=== PATIENT | female | born 1975 | race African-American/Black ===

== ENCOUNTER 2017-12-21 15:46 | Emergency (ER) | payer OTHER ==
[~2017-12-21] VITALS: Ht 162.6 cm; Wt 59.0 kg
[~2017-12-21 15:46] MED LIST: AMOXICILLIN500 MG ORAL; BACITRACIN15 GM TOPIC; BACTRIM-DS1 EA ORAL; CYCLOBENZAPRINE10 MG ORAL; FERROUS SULFAT325 MG ORAL; HYDROCODON-ACE1 EA15 ORAL; IBUPROFEN600 MG ORAL; KEFLEX500 MG ORAL; KEPPRA500 MG ORAL; NORCO 5-325 TA1 EAC1 ORAL; NORCO 5-325 TA1 EACH ORAL; PERIDEX 0.12% O16 OZ MT; PROAIR HFA8.5 GM INH; TOPIRAMATE25 MG PO; VENLAFAXINE HCL25 MG PO; VICODIN 5-5001 EACH PO; ZOFRAN4 MG ORAL; [UNRECOGNIZED DRUG - REMARK]
[2017-12-21 15:52] VITALS: BP 134/82
--- NOTE | 2017-12-21 16:31 | Emergency Room Report ---
History of Present Illness General Chief Complaint: Syncope Source: Patient Present Illness HPI Patient is a 42-year-old female brought in by EMS for reported near syncopal episode. Per EMS patient had been at a physician's office. Patient called 911 after reportedly passing out. Patient prior history of partial seizures. Patient states that she had been having increased difficulty with the right shoulder pain as well as neck pain after fall. The patient prior history of cervical fusion. The patient was seeing a pain management physician at the time of episode. Allergies: Coded Allergies: Cat Dander (Unverified Allergy, Unknown, 09/06/15) Patient History Past Medical History: see triage record Reviewed Nursing Documentation: PMH: Agreed; PSxH: Agreed Nursing Documentation-PMH Past Medical History: No History, Except For Hx Asthma: Yes Hx Cerebrovascular Accident: Yes Hx Seizures: Yes Review of Systems All Other Systems: negative except mentioned in HPI Physical Exam Vital Signs Date Time Temp Pulse Resp B/P (MAP) Pulse Ox O2 Delivery O2 Flow Rate FiO2 12/21/17 15:37 98.5 78 20 134/82 99 Room Air 98.4 General Appearance: well appearing, no apparent distress, alert, GCS 15 Head: normocephalic, atraumatic ENT: hearing grossly normal, normal voice Neck: supple, limited range of motion Respiratory: no respiratory distress, speaking full sentences Cardiovascular #1: normal peripheral pulses, no edema, no gallop Gastrointestinal: normal inspection Musculoskeletal: normal inspection, back normal, digits/nails normal, no calf tenderness, other - no soft tissue swelling noted to forehead or to shoulder Neurologic: alert, oriented x3, responsive, game designer III-XII nml as tested, motor strength/tone normal, normal gait Psychiatric: normal inspection, judgement/insight normal, no suicidal/ homicidal ideation, other Skin: no rash Medical Decision Making Diagnostic Impression: Primary Impression: Chronic pain ER Course Patient presented for possible syncope. diagnosis included but not limited to syncope versus seizure. Potential causes for syncope included arrhythmia, dehydration, acute coronary syndrome, severe anemia, pulmonary embolus. The EKG interpreted by me showed normal sinus rhythm with a rate of [address] or T wave changes. CT the head read by radiology showed no evidence of acute intracranial hemorrhage or CVA. The cervical spine imaging 4 views interpreted by me showed postsurgical changes with no evident acute fracture there is noted to be some reversal of cervical curvature in the upper cervical spine above the level of the fusion. The prevertebral soft tissue is normal. I contacted the physician's office and they stated that the patient had no loss of consciousness or skin color changes during episode and assisted herself to the floor. Patient refused laboratory testing. The patient was given a sling for comfort although I do not see any definite injury. The patient remains awake and alert throughout emergency department course. The patient is advised to follow up with her primary care doctor in 1-2 days. Patient is advised to return if any worsening condition or if any changes in status that are concerning. This report is dictated with [employer] couture alterations dressmaker software which may occasionally lead to discrepancies related to use of this software. Last Vital Signs Date Time Temp Pulse Resp B/P (MAP) Pulse Ox O2 Delivery O2 Flow Rate FiO2 12/21/17 15:52 98.4 20 134/82 99 Room Air 98.4 12/21/17 15:37 78 Status: improved Disposition: HOME, SELF-CARE Condition: Stable Scripts Ibuprofen* (MOTRIN*) 600 Mg Tablet 600 MG ORAL Q8H PRN for For Pain, #30 TAB 0 Refills Prov: Lloyd Zavala MD 12/21/17 Lloyd Zavala MD December 21, 2017 16:31
[2017-12-21] MEDS ORDERED: IBUPROFEN600 MG ORAL (17:20)
[2017-12-21 17:43] VITALS: BP 134/82
--- NOTE | 2017-12-22 09:48 | Diagnostic Imaging Report ---
Indication: Altered mental status Technique: Contiguous 5 mm thick transaxial imaging of the head obtained in a Siemens Sensation [address] scanner. Soft tissue and bone windows generated. Automatic Exposure Control was utilized. Total Dose length Product (DLP): 1365.[address] Dose Index Volume (CTDIvol): 70.38 mGy Comparison: none Findings: The size and configuration of the cortical sulci, basal cisterns, and ventricles are within normal limits for age. There is no mass effect, midline shift, or edema identified. There is no evidence of acute hemorrhage or abnormal intra-axial or extra-axial fluid collections. The bones and soft tissues are unremarkable. Impression: No mass effect, edema or acute bleed. The CT scanner at [facility] is accredited by the [employer] and the scans are performed using dose optimization techniques as appropriate to a performed exam including Automatic Exposure control.
--- NOTE | 2017-12-22 10:51 | Diagnostic Imaging Report ---
Indication: Neck Pain Findings: 3 views of the cervical spine were obtained. Anterior cervical fusion at C5-6 demonstrated with a compression plate and intervening disc prosthesis. C6-7 disc is narrow with moderate endplate spur formation. Spurring also noted with abnormal disc space at C4-5. There is slight reversal of cervical lordosis about the mid and upper part of the cervical spine. There is no fracture identified or other malalignment concerning for acute injury. The open-mouth view shows good alignment of C1-2 and an intact dens. IMPRESSION: No acute injury. Cervical fusion as described above. Degenerative changes above and below the area of fusion. Reversal of cervical lordosis which may be due to muscle spasm.
== END 2017-12-21 17:46 | disposition home or self-care (01) ==
LOC: EDBD 15:46 → EMR 16:55
DX: R55 Syncope and collapse (principal); R41.82 Altered mental status, unspecified; J45.909 Unspecified asthma, uncomplicated; Z86.73 Personal history of transient ischemic attack (TIA), and cerebral infarction without residual deficits; Z98.1 Arthrodesis status; M54.2 Cervicalgia
CPT/HCPCS: 70450; 72050; 99284

== ENCOUNTER 2018-11-17 09:40 | Emergency (ER) | payer OTHER ==
[~2018-11-17] VITALS: Ht 160 cm; Wt 54.4 kg
--- NOTE | 2018-11-17 09:55 | NUR ---
ED Nurse Note: PT WALKED IN TO ER TODAY FROM HOME. AOX4. PT C/O LOWER RIGHT MOLAR TOOTHACHE X 2 DAYS AGO, PAIN 9/10. PT STATES SHE IS WAITING TO MAKE AN APPT WITH HER DENTIST BUT HAS NO APPT YET.
[2018-11-17 09:57] VITALS: BP 110/82
--- NOTE | 2018-11-17 10:26 | Emergency Room Report ---
History of Present Illness General Chief Complaint: Toothache Source: Patient, Medical Record Present Illness HPI Patient presents with several days of R upper molar pain. Feels this radiating to side of face. Constant and severe. Rated 9/10, aching, constant and worse with chewing. No swelling of face. No fevers or chills. Has been rinsing with salt water - not help. Not . Allergies: Coded Allergies: Cat Dander (Unverified Allergy, Unknown, 09/06/15) Patient History Past Medical History: see triage record Social History: Denies: smoking - former Social History Narrative from home Last Menstrual Period: 10/24/2018 Now: No : 0 Para: 0 Reviewed Nursing Documentation: PMH: Agreed; PSxH: Agreed Nursing Documentation-PMH Past Medical History: No Stated History Hx Asthma: Yes Hx Cerebrovascular Accident: Yes Hx Seizures: Yes Review of Systems Constitutional: Reports: see HPI ENT: Reports: see HPI Cardiovascular: Denies: chest pain Gastrointestinal: Denies: nausea, vomiting Genitourinary: Reports: see HPI Musculoskeletal: Denies: joint swelling Skin: Denies: rash Neurological: Reports: see HPI Physical Exam Vital Signs Date Time Temp Pulse Resp B/P (MAP) Pulse Ox O2 Delivery O2 Flow Rate FiO2 11/17/18 09:47 99.1 78 18 104/76 100 Room Air Sp02 EP Interpretation: reviewed, normal General Appearance: well appearing, no apparent distress Head: normocephalic, atraumatic Eyes: bilateral eye normal inspection, bilateral eye PERRL ENT: hearing grossly normal, normal voice, other - tender R upper molars, no significant gum swelling Neck: full range of motion, supple Respiratory: normal inspection, no respiratory distress, speaking full sentences Cardiovascular #1: regular rate, rhythm Cardiovascular #2: 2+ radial (R) Gastrointestinal: normal inspection Musculoskeletal: back normal, digits/nails normal, gait/station normal, no calf tenderness Neurologic: alert, oriented x3, grossly normal Psychiatric: mood/affect normal Skin: no rash Medical Decision Making Diagnostic Impression: Primary Impression: Dental abscess ER Course Patient presents with upper molar pain. DDx; dental abscess, dental pain amongst others. Exam consistent with dental abscess. Antibiotics and analgesics indicated. Discussed treatment plan with patient. Patient stable for outpatient observation and treatment. Last Vital Signs Date Time Temp Pulse Resp B/P (MAP) Pulse Ox O2 Delivery O2 Flow Rate FiO2 11/17/18 10:39 98.8 76 17 112/80 100 Room Air Status: improved Disposition: HOME, SELF-CARE Condition: Improved Scripts Lidocaine HCl 2% Viscous (Lidocaine HCl 2% Viscous) 100 Ml Solution 1 APPLIC ORAL QID, #30 ML Prov: Srinivas uFnez MD 11/17/18 Tramadol Hcl* (ULTRAM*) 50 Mg Tablet 50 MG ORAL Q6H PRN for For Pain, #6 TAB 0 Refills Prov: Srinivas Funez MD 11/17/18 Amoxicillin* (AMOXIL*) 500 Mg Capsule 500 MG ORAL THREE TIMES A DAY, #21 CAP Prov: Srinivas Funez MD 11/17/18 Ibuprofen* (MOTRIN*) 600 Mg Tablet 600 MG ORAL Q6H PRN for For Pain, #16 TAB Prov: Srinivas Funez MD 11/17/18 Srinivas Funez MD Nov 17, 2018 10:26
[2018-11-17] MEDS ORDERED: LIDOCAINE VISC100 ML ORAL (10:29)
[2018-11-17] MEDS ORDERED: AMOXICILLIN500 MG ORAL (10:29)
[2018-11-17] MEDS ORDERED: TRAMADOL HCL50 MG ORAL (10:29)
[2018-11-17] MEDS ORDERED: IBUPROFEN600 MG ORAL (10:29)
[2018-11-17 10:39] VITALS: BP 112/80
--- NOTE | 2018-11-17 10:39 | NUR ---
ED Nurse Note: PT SITTING PEACEFULLY IN BED IN NAD. AOX4. PRESCRIPTIONS AND DISCHARGE PAPERWORK EXPLAINED TO PT. PT VERBALIZES UNDERSTANDING AND ALL QUESTIONS ANSWERED. PRESCRIPTIONS AND DISCHARGE PAPERWORK GIVEN TO PT AND ID WRISTBAND REMOVED. PT WALKED OUT OF ER WITH STEADY GAIT AND ALL BELONGINGS.
== END 2018-11-17 11:00 | disposition home or self-care (01) ==
LOC: EMR 10:48
DX: K04.7 Periapical abscess without sinus (principal); J45.909 Unspecified asthma, uncomplicated; Z86.73 Personal history of transient ischemic attack (TIA), and cerebral infarction without residual deficits
CPT/HCPCS: 99283

== ENCOUNTER 2019-02-25 11:43 | Emergency (ER) | payer OTHER ==
[~2019-02-25] VITALS: Ht 160 cm; Wt 54.4 kg
[~2019-02-25 11:43] MED LIST changes: +LIDOCAINE VISC100 ML ORAL; +TRAMADOL HCL50 MG ORAL
--- NOTE | 2019-02-25 11:56 | NUR ---
ED Nurse Note: PT CAME IN DUE TO LEFT LEG PAIN AFTER A CEILING FELL OFF AND HIT HER LEG. NO BRUISING OR OPEN WOUNDS. PT IS AAO X4, AMBULATES WITH STEADY GAIT. DENIES LOC.
[2019-02-25] MEDS ORDERED: Acetaminophen 500mg (ES) tab ORAL ONE (12:30)
--- NOTE | 2019-02-25 12:35 | NUR ---
ED Nurse Note: pt refused to give urine sample abnd stated she is not .
--- NOTE | 2019-02-25 12:38 | NUR ---
ED Nurse Note: pt was medicated and tolerated well.
[2019-02-25] MEDS ORDERED: NAPROXEN250 MG ORAL (13:07)
[2019-02-25] MEDS ORDERED: ROBAXIN-750750 MG PO (13:07)
--- NOTE | 2019-02-25 13:07 | Emergency Room Report ---
History of Present Illness General Chief Complaint: Lower Extremity Injury Source: Patient Present Illness HPI 44-year-old female presents with left shoulder pain, patient [place] [employer] [place], she states there is falling debris, she states some debris hit her, no large metal object hit her she states mainly plaster from the ceiling, no LOC, no damage to the head she also endorses some left hip pain. States the pain is aggravated with movement alleviated with rest , no radiation of the pain Allergies: Coded Allergies: Cat Dander (Unverified Allergy, Unknown, 09/06/15) Patient History Social History: Reports: smoking Now: No Reviewed Nursing Documentation: PMH: Agreed; PSxH: Agreed Nursing Documentation-PMH Hx Asthma: Yes Hx Cerebrovascular Accident: Yes Hx Seizures: Yes Review of Systems All Other Systems: negative except mentioned in HPI Physical Exam Vital Signs Date Time Temp Pulse Resp B/P (MAP) Pulse Ox O2 Delivery O2 Flow Rate FiO2 02/25/19 11:45 98.4 77 19 113/74 (87) 98 Room Air Sp02 EP Interpretation: reviewed, normal General Appearance: well appearing, no apparent distress, alert Head: normocephalic, atraumatic Eyes: bilateral eye PERRL, bilateral eye EOMI ENT: uvula midline, moist mucus membranes Neck: supple, thyroid normal, supple/symm/no masses Respiratory: lungs clear, no respiratory distress, no retraction, no accessory muscle use Cardiovascular #1: normal peripheral pulses, regular rate, rhythm, no edema, no gallop, no murmur Gastrointestinal: non tender, soft, no guarding, no rebound Musculoskeletal: normal inspection, other - no obvious injury to the left shoulder, no ecchymosis, no obvious injury to the left hip, patient was able to ambulate without issues, slight tenderness to palp patient on the muscles, Neurologic: alert, oriented x3 Psychiatric: mood/affect normal Skin: no rash, warm/dry Medical Decision Making Diagnostic Impression: Primary Impression: Contusion of muscle ER Course Patient with no midline tenderness, no step-offs, unremarkable physical exam, patient most likely with soft tissue injury, no ecchymosis, no deformity. Suspect muscle contusion, will disposition patient home with return precautions , patient states she is not does not want to give a urine sample for a urine aware of risks and benefits Will provide patient with a prescription, Last Vital Signs Date Time Temp Pulse Resp B/P (MAP) Pulse Ox O2 Delivery O2 Flow Rate FiO2 02/25/19 11:45 98.4 77 19 113/74 (87) 98 Room Air Disposition: HOME, SELF-CARE Scripts Naproxen* (NAPROSYN*) 250 Mg Tablet 250 MG ORAL BID PRN for For Pain, #20 TAB 0 Refills Prov: Van Patel M.D. 02/25/19 Methocarbamol* (ROBAXIN-750*) 750 Mg Tablet 750 MG PO QID, #28 TAB 0 Refills Prov: Van Patel M.D. 02/25/19 Referrals: NON PHYSICIAN (PCP) Patient Instructions: Contusion, [id number] Additional Instructions: The patient was provided with discharge instructions, notified to follow-up with a primary care doctor and or specialist in the next 24-48 hours, and to return to the ED if they have worsening of their symptoms. Please note that this report is being documented using [employer] technology. This can lead to erroneous entry secondary to incorrect interpretation by the dictating instrument. Van Patel M.D. Feb 25, 2019 13:07
[2019-02-25 13:15] VITALS: BP 113/74
--- NOTE | 2019-02-25 13:15 | NUR ---
ER DISCHARGE NOTE: Patient is cleared to be discharged per ERMD, pt is aox4, on room air, with stable vital signs. pt was given dc and prescription instructions, pt was able to verbalize understanding, pt id band removed without complications. pt is able to ambulate with steady gait. pt took all belongings.
== END 2019-02-25 13:15 | disposition home or self-care (01) ==
LOC: EMR 12:40
DX: S40.012A Contusion of left shoulder, initial encounter (principal); S70.02XA Contusion of left hip, initial encounter; J45.909 Unspecified asthma, uncomplicated; G40.909 Epilepsy, unspecified, not intractable, without status epilepticus; F17.200 Nicotine dependence, unspecified, uncomplicated; W22.8XXA Striking against or struck by other objects, initial encounter; Y93.89 Activity, other specified; Y92.59 Other trade areas as the place of occurrence of the external cause; Z91.09 Other allergy status, other than to drugs and biological substances; Z86.73 Personal history of transient ischemic attack (TIA), and cerebral infarction without residual deficits
CPT/HCPCS: 99282

== ENCOUNTER 2019-03-05 22:23 | Emergency (ER) | payer OTHER ==
[~2019-03-05] VITALS: Ht 160 cm; Wt 55.8 kg
[~2019-03-05 22:23] MED LIST changes: +NAPROXEN250 MG ORAL; +ROBAXIN-750750 MG PO
[2019-03-05 22:26] VITALS: BP 110/69
--- NOTE | 2019-03-05 22:37 | NUR ---
ED Nurse Note: Patient presents with complaints of right toe injury with possible ankle involvement. Ankle was previously reconstructed and patient is having pain there as well.
--- NOTE | 2019-03-05 22:45 | NUR ---
ED Nurse Note: JIMBO currently at bedside.
--- NOTE | 2019-03-05 22:59 | Emergency Room Report ---
History of Present Illness General Chief Complaint: Lower Extremity Injury Source: Patient Present Illness HPI 44-year-old female history of reconstructive surgery of the right ankle presents with right toe pain that started after she tripped on a manhole, her right great toe got stuck, she endorses pain with movement, alleviated with rest , pain is described as sharp, no fevers chills chest pain shortness of breath, no abdominal pain. Patient presents for evaluation Allergies: Coded Allergies: Cat Dander (Unverified Allergy, Unknown, 09/06/15) Patient History Past Medical History: see triage record Social History: Reports: smoking Last Menstrual Period: 02/25/19 Now: No Reviewed Nursing Documentation: PMH: Agreed; PSxH: Agreed Nursing Documentation-PMH Past Medical History: No History, Except For Hx Asthma: Yes Hx Cerebrovascular Accident: Yes Hx Seizures: Yes Review of Systems All Other Systems: negative except mentioned in HPI Physical Exam Vital Signs Date Time Temp Pulse Resp B/P (MAP) Pulse Ox O2 Delivery O2 Flow Rate FiO2 03/05/19 22:26 98.6 70 14 110/69 (83) 96 Room Air Sp02 EP Interpretation: reviewed, normal General Appearance: well appearing, no apparent distress, alert Head: normocephalic, atraumatic Eyes: bilateral eye PERRL, bilateral eye EOMI ENT: uvula midline, moist mucus membranes Neck: supple, thyroid normal, supple/symm/no masses Respiratory: lungs clear, no respiratory distress, no retraction, no accessory muscle use Cardiovascular #1: normal peripheral pulses, regular rate, rhythm, no edema, no gallop, no murmur Gastrointestinal: non tender, soft, no guarding, no rebound Musculoskeletal: other - Right lower external knee: 2+ PT, DP, fires EHL, 5 out of 5 plantar dorsiflexion of the ankle, tenderness to palpation over the right great toe, there is a soft tissue defect with flap no bone exposure, at the tip of the right great toe, slight tenderness to palpation of the right ankle lateral malleolus Neurologic: alert, oriented x3 Psychiatric: mood/affect normal Skin: no rash, warm/dry Medical Decision Making Diagnostic Impression: Primary Impression: Right foot sprain ER Course 44-year-old female presents with right foot pain, after tripping on a manhole that was taking out, her right toe was cleaned, irrigated, x-ray showed no acute fracture, there is a displaced screw, we will Jayy wrap the right ankle, however follow-up with orthopedics return precautions discussed TDAP given, wound cleaned, jayy wrap. and crutches, non weight bearing until cleared by ortho CT/MRI/US Diagnostic Results CT/MRI/US Diagnostic Results : Impression FILM RIGHT FOOT: No acute fracture or subluxation. The fourth screw from the top of the fibular fixation hardware is displaced and situated within the medullary cavity. Remaining hardware is intact. Radiologist: Omaira Zelaya MD Study ready at 23:43 and initial results transmitted at 00:06 Last Vital Signs Date Time Temp Pulse Resp B/P (MAP) Pulse Ox O2 Delivery O2 Flow Rate FiO2 03/05/19 22:26 98.6 70 14 110/69 (83) 96 Room Air Disposition: HOME, SELF-CARE Condition: Stable Referrals: [facility] Patient Instructions: Foot Sprain Additional Instructions: The patient was provided with discharge instructions, notified to follow-up with a primary care doctor and or specialist in the next 24-48 hours, and to return to the ED if they have worsening of their symptoms. Please note that this report is being documented using [employer] technology. This can lead to erroneous entry secondary to incorrect interpretation by the dictating instrument. Please follow-up with your current orthopaedic doctor for your right foot in 24- 48 hours, Dr. Garibay "The fourth screw from the top of the fibular fixation hardware is displaced and situated within the medullary cavity. Remaining hardware is intact." Van Patel MD Mar 05, 2019 22:59
[2019-03-05] MEDS ORDERED: Tetanus/Diptheria/Pertussis IM ONE (23:00)
--- NOTE | 2019-03-05 23:04 | NUR ---
ED Nurse Note: Patient tolerated injection well, injection given includes Tdap. Patient also tolerated toe rinse well. Patient awaiting radiology for xray of R foot.
--- NOTE | 2019-03-06 00:07 | Diagnostic Imaging Report ---
Indication: Foot Pain Comparison: None Findings: 3 views of the right foot were obtained. No acute fractures, malalignment, erosions or periostitis are identified. Impression: No acute findings.
--- NOTE | 2019-03-06 00:08 | Diagnostic Imaging Report ---
Indication: ankle pain/trauma Comparison: None Findings: 3 views of the right ankle obtained. No acute fracture, malalignment, periostitis, or osteochondral defects are identified. Bimalleolar hardware noted. Soft tissues are unremarkable.. Impression: No acute findings
== END 2019-03-06 00:23 | disposition home or self-care (01) ==
LOC: EMR 23:56
DX: S93.601A Unspecified sprain of right foot, initial encounter (principal); W17.1XXA Fall into storm drain or manhole, initial encounter; Y92.9 Unspecified place or not applicable; F17.200 Nicotine dependence, unspecified, uncomplicated; Z86.73 Personal history of transient ischemic attack (TIA), and cerebral infarction without residual deficits; G40.909 Epilepsy, unspecified, not intractable, without status epilepticus; Z23 Encounter for immunization
CPT/HCPCS: 90471; 90715; 99284

== ENCOUNTER 2019-05-02 06:28 | Emergency (ER) | payer OTHER ==
[~2019-05-02] VITALS: Ht 160 cm; Wt 54.4 kg
--- NOTE | 2019-05-02 06:40 | NUR ---
ED Nurse Note: Walk-in patient presents with complaints of flu-like symptoms x 3 days. Patient reports history of asthma, bronchitis and seizures. Patient is awake alert and oriented, lung sounds rhonchi and wheezing bilaterally. Patient resting comfortably with visitor in waiting room. Will continue to monitor and service any pending orders.
--- NOTE | 2019-05-02 07:00 | Emergency Room Report ---
History of Present Illness General Chief Complaint: Flu Like Symptoms Source: Patient Present Illness HPI This patient states that she has had a week of a "cold." She states that over the past couple days her symptoms have significantly worsened. She states that she has a thick green brown-colored sputum with streaky blood in it. She states she has had a bad cough. She states she has been fatigued and has had some shortness of breath. She does have a history of tobacco use. She states she quit smoking about 3-1/2 weeks ago. She denies fever or chills. She denies nausea or vomiting. She denies sore throat. She denies headache or neck pain. She denies chest pain or abdominal pain. She states that she has a history of asthma but she is out of her inhaler. She has no other complaints. Allergies: Coded Allergies: Cat Dander (Unverified Allergy, Unknown, 09/06/15) Patient History Past Medical History: see triage record, asthma, other - anemia, eczema Social History: Denies: smoking - Quit 3.5 weeks ago, alcohol use, drug use Last Menstrual Period: 04/2017 Now: No Reviewed Nursing Documentation: PMH: Agreed; PSxH: Agreed Nursing Documentation-PMH Hx Asthma: Yes Hx Cerebrovascular Accident: Yes Hx Seizures: Yes Review of Systems All Other Systems: negative except mentioned in HPI Physical Exam Vital Signs Date Time Temp Pulse Resp B/P (MAP) Pulse Ox O2 Delivery O2 Flow Rate FiO2 05/02/19 06:34 98.4 71 16 137/87 (104) 99 Room Air Sp02 EP Interpretation: reviewed, normal General Appearance: no apparent distress, alert, GCS 15, non-toxic Head: normocephalic, atraumatic Eyes: bilateral eye normal inspection, bilateral eye PERRL ENT: hearing grossly normal, normal pharynx, no angioedema, normal voice Neck: full range of motion, supple/symm/no masses Respiratory: chest non-tender, lungs clear, normal breath sounds, no respiratory distress, no retraction, no accessory muscle use, speaking full sentences Cardiovascular #1: regular rate, rhythm, no edema Gastrointestinal: normal inspection Rectal: deferred Musculoskeletal: back normal, gait/station normal, normal range of motion, non- tender Neurologic: alert, oriented x3, responsive, motor strength/tone normal, sensory intact, speech normal Psychiatric: judgement/insight normal, memory normal, mood/affect normal, no suicidal/homicidal ideation Skin: no rash, normal color Medical Decision Making Diagnostic Impression: Primary Impression: Bronchitis ER Course This patient has a clinical presentation with Bronchitis. The evaluation was very reassuring with a normal lung exam, no respiratory distress, normal pulse oximetry. The patient has a history of asthma and has worsening of her respiratory infection over the past 2 days. She is 7 days into her illness and not improving. In the setting of asthma with this disease progression and a history of thick green-colored sputum streaked with blood, I am concerned for a bacterial etiology. Therefore, we will treat this patient with a course of azithromycin. I will also refill the patient's albuterol inhaler. She is not wheezing and so I will not prescribe steroids at this time. I will also treat supportively with cough suppressants. No emergency medical condition was identified. The patient is given close return precautions and follow-up instructions. Last Vital Signs Date Time Temp Pulse Resp B/P (MAP) Pulse Ox O2 Delivery O2 Flow Rate FiO2 05/02/19 06:34 98.4 71 16 137/87 (104) 99 Room Air Status: improved Disposition: HOME, SELF-CARE Condition: Improved Catrachita Cheng DO May 02, 2019 07:00
[2019-05-02] MEDS ORDERED: ALBUTEROL SULF8.5 GM INH (07:02)
[2019-05-02] MEDS ORDERED: ZITHROMAX250 MG ORAL (07:02)
[2019-05-02] MEDS ORDERED: TESSALON PERLE100 MG ORAL (07:02)
[2019-05-02 07:03] VITALS: BP 137/87
--- NOTE | 2019-05-02 07:15 | NUR ---
ED Nurse Note: Patient cleared for discharge with no s/s of acute distress, verbalized understanding of discharge instructions and departed with all belongings.
== END 2019-05-02 07:15 | disposition home or self-care (01) ==
LOC: EMR 07:00
DX: J40 Bronchitis, not specified as acute or chronic (principal); J45.909 Unspecified asthma, uncomplicated; Z86.73 Personal history of transient ischemic attack (TIA), and cerebral infarction without residual deficits; Z91.048 Other nonmedicinal substance allergy status; Z87.891 Personal history of nicotine dependence
CPT/HCPCS: 99282

== ENCOUNTER 2019-06-23 11:26 | Emergency (ER) | payer OTHER ==
[~2019-06-23] VITALS: Ht 160 cm; Wt 55.8 kg
[~2019-06-23 11:26] MED LIST changes: +ALBUTEROL SULF8.5 GM INH; +TESSALON PERLE100 MG ORAL; +ZITHROMAX250 MG ORAL
[2019-06-23 12:01] VITALS: BP 112/55
--- NOTE | 2019-06-23 12:06 | Emergency Room Report ---
History of Present Illness General Chief Complaint: Pain Source: Patient, Medical Record Present Illness HPI 44-year-old female with no significant past medical history here complaining of pain in her right ankle that she was diagnosed with a sprain ankle here at [facility] 2 months ago. Also reports that her right big toe has been hurting ever since she got pedicures done a day ago. Patient reports that the nail was getting ingrown and she decided to cut it herself and get the nails done. Denies fever chills, posterior tingling or numbness. Patient without radiation. Has not yet seen primary care also has been taking ibuprofen 800 with minimal relief. she denies any new injuries, chest pain, shortness of breath, palpitation, no other associated symptoms. Allergies: Coded Allergies: Cat Dander (Unverified Allergy, Unknown, 09/06/15) Patient History Past Medical History: see triage record Past Surgical History: unable to obtain Pertinent Family History: none Last Menstrual Period: 06/16/2019 Now: No Immunizations: UTD Reviewed Nursing Documentation: PMH: Agreed; PSxH: Agreed Nursing Documentation-PMH Hx Asthma: Yes Hx Cerebrovascular Accident: Yes Hx Seizures: Yes Review of Systems All Other Systems: negative except mentioned in HPI Physical Exam Vital Signs Date Time Temp Pulse Resp B/P (MAP) Pulse Ox O2 Delivery O2 Flow Rate FiO2 06/23/19 11:49 98.8 85 18 112/55 (74) 97 Room Air Sp02 EP Interpretation: reviewed, normal General Appearance: no apparent distress, alert, GCS 15, non-toxic Head: normocephalic, atraumatic Eyes: bilateral eye normal inspection, bilateral eye PERRL ENT: hearing grossly normal, normal pharynx, no angioedema, normal voice Neck: full range of motion, supple, no bony tend, supple/symm/no masses Respiratory: chest non-tender, lungs clear, normal breath sounds, no rhonchi, no wheezing, speaking full sentences Cardiovascular #1: normal peripheral pulses, regular rate, rhythm, no edema, no murmur, normal capillary refill Cardiovascular #2: 2+ dorsalis pedis (R), 2+ dorsalis pedis (L) Gastrointestinal: normal bowel sounds, non tender, soft, non-distended, no guarding, no rebound Genitourinary: no CVA tenderness Musculoskeletal: gait/station normal, normal range of motion, non-tender, no calf tenderness, pelvis stable, other - Cellulitis right toe Neurologic: alert, oriented x3, responsive, motor strength/tone normal, sensory intact, speech normal Psychiatric: judgement/insight normal, memory normal, mood/affect normal, no suicidal/homicidal ideation Skin: other - Cellulitis right big toe Lymphatic: no adenopathy Medical Decision Making PA Attestation All my diagnosis and treatment plans were reviewed ad discussed with my supervising physician Dr. Zavala Diagnostic Impression: Primary Impression: Cellulitis, toe Additional Impression: Sprained ankle ER Course 44-year-old female with no significant past medical history here complaining of pain in her right ankle that she was diagnosed with a sprain ankle here at [facility] 2 months ago. Also reports that her right big toe has been hurting ever since she got pedicures done a day ago. Patient reports that the nail was getting ingrown and she decided to cut it herself and get the nails done. Denies fever chills, posterior tingling or numbness. Patient without radiation. Has not yet seen primary care also has been taking ibuprofen 800 with minimal relief. she denies any new injuries, chest pain, shortness of breath, palpitation, no other associated symptoms. Ddx considered but are not limited to : Cellulitis, ingrown toenail, toe contusion, superficial infection, abscess Vital signs: are WNL, pt. is afebrile H&PE are most consistent with: Chronic sprain ankle, cellulitis of right big toe ORDERS: Keflex, Robaxin ED INTERVENTIONS: None required at this time. DISCHARGE: At this time pt. is stable for d/c to home. Will provide printed patient care instructions, and any necessary prescriptions. Care plan and follow up instructions have been discussed with the patient prior to discharge. Continue taking her ibuprofen 800 mg avoid taking Advil as this will be too much ibuprofen. Follow-up with your primary care provider for referral to podiatry your patient reports that she has an appointment with primary care physician this coming . Avoid strenuous physical activity and keep the brace on your ankle. If worsening symptoms return to the emergency room. At this time no further imaging is needed as at this point ankle is x2 months. Last Vital Signs Date Time Temp Pulse Resp B/P (MAP) Pulse Ox O2 Delivery O2 Flow Rate FiO2 06/23/19 11:49 98.8 85 18 112/55 (74 97 Room Air Disposition: HOME, SELF-CARE Condition: Stable Scripts Methocarbamol* (ROBAXIN-500*) 500 Mg Tablet 500 MG ORAL TID PRN for For Pain, #15 TAB 0 Refills Prov: Ramon Hernandez 06/23/19 Cephalexin* (KEFLEX*) 500 Mg Capsule 500 MG ORAL EVERY 6 HOURS for 7 Days, #28 CAP Prov: Ramon Hernandez 06/23/19 Patient Instructions: Ankle Sprain, [id number], Cellulitis, [id number] Additional Instructions: Take medication as directed, avoid wearing flip-flops wear sturdy protective shoes with open front. Follow-up with your primary care provider for referral to emd teacher. If worsening symptoms return to the emergency room. Ramon Hernandez Jun 23, 2019 12:06
--- NOTE | 2019-06-23 12:06 | NUR ---
ED Nurse Note: Pt ambulated to ED from home c/o / pain in R foot large toe, pt has hx of infection and ingrown toenail. VSS. Pt A&Ox4
[2019-06-23] MEDS ORDERED: ROBAXIN-500MG ORAL (12:07)
[2019-06-23] MEDS ORDERED: CEPHALEXIN500 MG ORAL (12:07)
[2019-06-23 12:20] VITALS: BP 112/55
--- NOTE | 2019-06-23 12:20 | NUR ---
ER DISCHARGE NOTE: Pt cleared by ERMD for discharge, VSS. Pt given prescriptions and discharge instructions, verbalized understanding. PT A&Ox4. Pt id band removed, all belongings taken.
== END 2019-06-23 13:00 | disposition home or self-care (01) ==
LOC: EMR 12:35
DX: L03.031 Cellulitis of right toe (principal); S93.401A Sprain of unspecified ligament of right ankle, initial encounter; X58.XXXA Exposure to other specified factors, initial encounter; Y92.9 Unspecified place or not applicable; G40.909 Epilepsy, unspecified, not intractable, without status epilepticus; Z86.73 Personal history of transient ischemic attack (TIA), and cerebral infarction without residual deficits
CPT/HCPCS: 99282